=== PATIENT | male | born 2000 | race Hispanic/Latino ===

== ENCOUNTER 2021-07-06 19:22 | Emergency (ER) | payer OTHER, SELFPAY ==
[~2021-07-06] VITALS: Ht 165.1 cm; Wt 61.2 kg
[2021-07-06] MEDS ORDERED: IBUP-1552 PO (19:59)
[2021-07-06] MEDS ORDERED: ACET-2247 PO (19:59)
[2021-07-06] MEDS ORDERED: IBUPROFEN 800 MG TAB ONE (20:10)
[2021-07-06] MEDS ORDERED: ACETAMINOPHEN 500 MG TABLET ONE (20:10)
[2021-07-06 20:40] VITALS: BP 126/76
[2021-07-06] MEDS ORDERED: ACETAMINOPHEN 500 MG TABLET PO ONE (21:00)
[2021-07-06] MEDS ORDERED: IBUPROFEN 800 MG TAB PO ONE (21:00)
== END 2021-07-06 20:56 | disposition home or self-care (01) ==
LOC: EDH 19:22
DX: U07.1 COVID-19 (principal); B34.9 Viral infection, unspecified; Z79.1 Long term (current) use of non-steroidal anti-inflammatories (NSAID)